=== PATIENT | male | born 1970 | race American Indian/Alaskan Native ===

== ENCOUNTER 2016-10-26 07:09 | Day surgery (SDC) | payer BC ==
[2016-10-26 07:56] LABS: Basophils % (Auto) 0.5 % (0.0-1.8); Eosinophils % (Auto) 5.7 % (0.0-4.3); Hematocrit 42.7 % (35.5-45.6); Hemoglobin 14.1 gm/dl (11.8-15.2); Mean Corpuscular HGB Conc 33 % (32-34); Mean Corpuscular Hemoglobin 28 pg (28-32); Mean Corpuscular Volume 85 fl (84-94); Platelet Count 267 K/mm3 (140-440); Red Blood Count 5.03 M/mm3 (3.65-5.03); Red Cell Distribution Width 13.9 % (13.2-15.2); White Blood Count 7.1 K/mm3 (4.5-11.0)
[2016-10-26] MEDS ORDERED: NACL 0.9% 500 ML 500 ML IV SCH (08:00)
[2016-10-26 08:09] LABS: INR 1.02 (0.87-1.13)
[2016-10-26] MEDS ORDERED: NACL 0.9% 500 ML 500 ML ONE (08:13)
[2016-10-26 08:15] LABS: Anion Gap 14 mmol/L; BUN/Creatinine Ratio 14.44; Blood Urea Nitrogen 13 mg/dL (9-20); Calcium 8.8 mg/dL (8.4-10.2); Carbon Dioxide 28 mmol/L (22-30); Chloride 105.6 mmol/L (98-107); Glucose 95 mg/dL (75-100); Potassium 3.9 mmol/L (3.6-5.0); Sodium 144 mmol/L (137-145)
[2016-10-26] MEDS ORDERED: HEPARIN/NS 5000 UNIT/500ML(CATH LAB) 1,000 ML IR ONE (08:38)
[2016-10-26] MEDS ORDERED: XYLOCAINE 2% INFILTRATI ONE (08:39)
[2016-10-26] MEDS ORDERED: HEPARIN 10,000 UNITS/10 ML ONE (08:39)
[2016-10-26] MEDS ORDERED: CALAN ONE (08:39)
[2016-10-26] MEDS ORDERED: NITROGLYCERIN SYRINGE 3 ML ONE (08:39)
[2016-10-26] MEDS: VERSED ONE ×2 (09:50→10:01)
[2016-10-26] MEDS: SUBLIMAZE ONE ×2 (09:51→10:01)
[2016-10-26] MEDS ORDERED: NACL 0.9% 1000 ML 1,000 ML IV SCH (11:00)
--- NOTE | 2016-10-26 11:02 | Discharge Summary ---
Short Stay Discharge Plan Activity: advance as tolerated Weight Bearing Status: Full Weight Bearing Diet: low fat, low cholesterol, low salt Wound: keep clean and dry Special Instructions: no heavy lifting (3 days) Follow up with: SERGIO SHARP MD [Staff Physician] - 7 Days
--- NOTE | 2016-10-26 12:16 | Cardiac Catherization Report ---
REASON FOR PROCEDURE: The patient presented for outpatient evaluation for presyncope. A treadmill stress test was abnormal, with ST depression on exercise, prompting a recommendation for cardiac catheterization. PROCEDURES: 1. Selective left and right coronary angiography. 2. Left ventricular angiography. The patient was prepped and draped in a sterile fashion after informed consent. The right radial cath site was prepped and draped after a negative Rosalio's test. The right radial artery was entered using the Seldinger technique followed by placement of a 6-Spanish hydrophilic sheath. Routine radial cocktail was administered via the sheath. Selective left and right coronary angiography was performed. A #3.5 left Jonnathan was used for left coronary angiography. A #4 Right Jonnathan was used for right coronary angiography. The pigtail catheter was used for left ventricular angiography. The catheters were removed, sheath removed, and hemostasis achieved using manual compression. The patient tolerated the procedure well and there were no complications. FINDINGS: HEMODYNAMICS: Left ventricular end-diastolic pressure was 14, following coronary angiography. Ascending aortic pressure was 132/83. There was no significant pressure gradient on pullback across the aortic valve. CORONARY ANGIOGRAPHY: The left main coronary artery was angiographically normal. The left anterior descending artery and its diagonal branches were free of significant disease. The circumflex artery and its obtuse marginal branches were angiographically normal. The right coronary artery was dominant, and this vessel and its branches were also angiographically normal. There was normal left ventricular systolic function, ejection fraction 60%. CONCLUSION: 1. Angiographically normal coronary arteries. 2. Normal left ventricular systolic function, ejection fraction 60%. RECOMMENDATION: Risk factor modification. JOB# [id number] CA/NTS
[2016-10-26 13:38] VITALS: BP 126/86
== END 2016-10-26 14:30 | disposition home or self-care (01) ==
LOC: CATHLABREC 07:09
PROVIDERS: ATTEND Internal Medicine Cardiovascular Disease
DX: R94.39 Abnormal result of other cardiovascular function study (principal); I10 Essential (primary) hypertension; Z88.0 Allergy status to penicillin; Z98.890 Other specified postprocedural states; Z72.89 Other problems related to lifestyle; Z79.899 Other long term (current) drug therapy; Z82.49 Family history of ischemic heart disease and other diseases of the circulatory system
CPT/HCPCS: 36415; 80048; 85025; 85610; 85730; 93005; 93010; 93458; C1894; J1644; J2250; J3010; J7040; Q9967